=== PATIENT | male | born 1995 | race Caucasian/White ===

== ENCOUNTER 2019-11-16 02:33 | Emergency (ER) | payer BC ==
--- NOTE | 2019-11-16 03:19 | EDM.PDOC ---
ED HPI GENERAL MEDICAL PROBLEM - General Chief Complaint: Eye Problems Stated Complaint: eyes Time Seen by Provider: 11/16/19 03:00 Source of Information: Reports: Patient History Limitations: Reports: No Limitations - History of Present Illness INITIAL COMMENTS - FREE TEXT/NARRATIVE: Jim awoke this am with pain, burning, and excessive tearing of eyes. 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 There is no other known exposure. He has tried no meds. Bilateral Eye Pain Score (Numeric/FACES): 5 - Related Data Allergies Allergy/AdvReac Type Severity Reaction Status Date / Time No Known Allergies Allergy Verified 11/16/19 02:38 Home Meds: Home Meds NK [No Known Home Meds] 11/16/19 [History] Past Medical History - Past Health History Medical/Surgical History: Denies Medical/Surgical History Social & Family History - Tobacco Use Smoking Status *Q: Never Smoker ED ROS GENERAL - Review of Systems Review Of Systems: Comprehensive ROS is negative, except as noted in HPI. ED EXAM GENERAL W FULL EYE - Physical Exam Exam: See Below Exam Limited By: Physical Impairment General Appearance: Alert, WD/WN, Mild Distress, Obese Eye Exam: Bilateral Eye: Conjunctival Injection, EOMI, Normal Fundi, PERRL Visual Acuity (R) 20/: 20 Visual Acuity (L) 20/: 20 With Correction: No Eyelids: Bilateral: Normal Appearance Conjunctiva & Sclera: Bilateral: Conjunctival Edema, Injected Cornea Exam: Bilateral: Normal Appearance, Examined with Flourescein Extraocular Movements: Bilateral: Intact Pupils: Normal Accommodation Pupillary Size: Bilateral: 3 mm Pupillary Reaction: Bilateral: Brisk Anterior Chamber: Bilateral: Normal Appearance Posterior Chamber: Bilateral: Normal Funduscopic Ears: Normal External Exam Nose: Normal Inspection Throat/Mouth: Normal Inspection, Normal Oropharynx Head: Normocephalic Neck: Normal Inspection Respiratory/Chest: Lungs Clear Cardiovascular: Regular Rate, Rhythm Back Exam: Normal Inspection Extremities: Normal Inspection Neurological: Alert, Oriented, CN II-XII Intact, Normal Cognition Skin Exam: Warm, Dry, Intact, Normal Color Lymphatic: No Adenopathy Course - Vital Signs Text/Narrative:: Following assessment of both eyes, I administered 1 gtt of 1% Cyclogyl, Triple Antibx Oph Oint, and patched both eyes for the next 6 hours. Last Recorded V/S: Last Vital Signs Temp 36.6 C 11/16/19 02:43 Pulse 66 11/16/19 02:43 Resp 16 11/16/19 02:43 BP 132/85 11/16/19 02:43 Pulse Ox 98 11/16/19 02:43 Departure - Departure Time of Disposition: 03:19 Disposition: Home, Self-Care 01 Condition: Fair Clinical Impression: Welders' keratitis of both eyes - Discharge Information *PRESCRIPTION DRUG MONITORING PROGRAM REVIEWED*: Not Applicable *COPY OF PRESCRIPTION DRUG MONITORING REPORT IN PATIENT GRECIA: Not Applicable Instructions: Ultraviolet Keratitis, [id number] Referrals: PCP,None [Primary Care Provider] - Forms: ED Department Discharge Additional Instructions: Leave patches on for 6 hours. Utilize eye ointment as needed once to twice daily. Ibuprofen 800mg every 8 hours as needed for pain. Continue to wear sunglasses. Sepsis Event Note (ED) - Evaluation Sepsis Screening Result: No Definite Risk - Focused Exam Vital Signs: Vital Signs Temp Pulse Resp BP Pulse Ox 11/16/19 02:43 36.6 C 66 16 132/85 98 - Problem List & Annotations (1) Welders' keratitis of both eyes SNOMED Code(s): 8396263 Code(s): H16.133 - PHOTOKERATITIS, BILATERAL Status: Acute Current Visit: Yes Annotation/Comment:: He may remove patches in 6 hours, take Ibufprofen 600 mg po every 6 hurs, wear sun glsses, and reapply Triple Antibx Oph Oint if soothing. - Problem List Review Problem List Initiated/Reviewed/Updated: Yes - Assessment/Plan Plan: Follow up with PCP or OD if needed.
== END 2019-11-16 03:15 | disposition home or self-care (01) ==
LOC: FB.ED 02:33
DX: H16.133 Photokeratitis, bilateral (principal); E66.9 Obesity, unspecified
CPT/HCPCS: 99283